=== PATIENT | female | born 1990 | race Caucasian/White ===

== ENCOUNTER 2016-10-27 22:05 | Inpatient (IN) | payer MEDICAID, OTHER ==
[2016-10-28] MEDS ORDERED: SODIUM CHLORIDE 0.9% 1,000 ML ONE (00:10)
[2016-10-28] MEDS ORDERED: ONDANSETRON 4 MG/2ML 2 ML VIAL ONE ×2 (00:10→14:12)
[2016-10-28] MEDS ORDERED: HYDROMORPHONE HCL 0.5 MG/0.5 ML SYRINGE ONE ×2 (00:10→04:35)
[2016-10-28 00:26] LABS: ABSOLUTE NEUTROPHIL COUNT 7.7 K/mm3 (1.8-7.7); BASO # 0.1 K/mm3 (0.0-0.2); BASO % 0.7 % (0.2-1.0); EOS # 0.4 (0.0-0.5); HEMATOCRIT 36.8 % (37.0-47.0); HEMOGLOBIN 12.4 gm/l (12.0-16.0); IMM NEUT # 0.1 K/mm3 (0-0.2); IMM NEUT% 0.4 % (0-1); LYMPH # 2.6 (1.0-4.8); LYMPH % 22.6 % (15-45); MEAN CELL VOLUME 88.7 fl (81.0-99.0); MEAN CORPUSCULAR HEMOGLOBIN 29.9 pg (27.0-31.0); MEAN CORPUSCULAR HGB CONC 33.7 g/dl (33.0-37.0); MEAN PLATELET VOLUME 9.1 fl (7.4-10.4); MONO # 0.9 (0.0-0.8); MONO % 7.4 % (4-12); NEUT % 65.9 % (43-75); PLATELET COUNT 328 K/mm3 (130-400); RED CELL DISTRIBUTION WIDTH 12.7 % (11.5-14.5)
[2016-10-28 00:45] LABS: ALB/GLOB RATIO 1.4 (>1.0); ALBUMIN 3.7 gm/dL (3.5-5.7); CALCIUM 8.9 mg/dL (8.6-10.3)
[2016-10-28 02:08] LABS: PH,URINE 6.5 (5.0-8.0); URINE BILIRUBIN NEGATIVE (NEGATIVE); URINE BLOOD NEGATIVE (NEGATIVE); URINE GLUCOSE (UA) NEGATIVE (NEGATIVE); URINE LEUKOCYTE ESTERASE TRACE (NEGATIVE); URINE NITRITE NEGATIVE (NEGATIVE); URINE PROTEIN NEGATIVE (NEGATIVE); URINE UROBILINOGEN 1 mg/dL (0-1 mg/dl)
[2016-10-28 02:12] LABS: URINE APPEARANCE SL CLOUDY; URINE COLOR YELLOW
[2016-10-28 02:15] LABS: URINE AMORPHOUS SEDIMENT 4+; URINE BACTERIA TRACE; URINE EPITHELIAL CELLS PACKED /hpf
[2016-10-28 05:17] VITALS: BMI 23.5
[2016-10-28] MEDS ORDERED: HYDROMORPHONE HCL 0.5 MG/0.5 ML SYRINGE IV PRN (05:30)
[2016-10-28] MEDS ORDERED: ONDANSETRON 4 MG/2ML 2 ML VIAL IV PRN ×3 (05:33→20:00)
[2016-10-28] MEDS ORDERED: PUMP TUBING ONE (05:36)
[2016-10-28] MEDS: D5 1/2NS with 20 mEq KCL 1,000 ML IV SCH ×3 (05:43→17:44)
--- NOTE | 2016-10-28 09:42 | US ---
ABDOMINAL-LIMITED COMPARISON: None. HISTORY: Right upper quadrant pain. Patient was given pain medication. Last date at 2200 on 10/27/2016 FINDINGS: Gallbladder: Length 7.9 cm, wall thickness 2.7 mm. Echogenic sludge. No stones. Negative Mack sign. Common hepatic duct: 2 mm. Common bile duct: 3 mm IMPRESSION: 1. Gallbladder sludge. No acute cholecystitis. Bile ducts are nondilated. Preliminary report by [facility] radiologist Nick Hernandez M.D. 10/28/2016 at 01:38
[2016-10-28] MEDS ORDERED: WATER IV SCH (10:30)
[2016-10-28] MEDS ORDERED: PIPERACILLIN-TAZO PREMIX BAG 3.375 G in Premix (D5W) 50 ml 1 EACH IV SCH (10:30)
[2016-10-28] MEDS ORDERED: PIPERACILLIN TAZO IV SCH (10:30)
[2016-10-28] MEDS ORDERED: LACTATED RINGERS 1,000 ML ONE (11:07)
[2016-10-28] MEDS ORDERED: LIDOCAINE 1%/EPI 1:100,000 (MULTI DOSE) 30 ML VIAL ONE (11:28)
[2016-10-28] MEDS ORDERED: Heparin Sodium 5000 unit/0.5ml syringe SUB-Q ONE (13:27)
[2016-10-28] MEDS ORDERED: CEFAZOLIN SODIUM 2 GRAM PREMIX 2 G in Premix (D5W) 100 ml 1 EACH IV PRN (13:27)
[2016-10-28] MEDS ORDERED: MIDAZOLAM HCL 1 MG/ML 2ML VIAL ONE (13:33)
[2016-10-28] MEDS ORDERED: FENTANYL 250 MCG/5 ML AMP ONE (13:33)
[2016-10-28] MEDS ORDERED: CEFAZOLIN SODIUM 2 GRAM PREMIX 100 ML IV ONE (13:46)
[2016-10-28] MEDS ORDERED: DEXAMETHASONE SOD PHOS 4 MG/1 ML VIAL ONE (14:12)
[2016-10-28] MEDS ORDERED: DIPHENHYDRAMINE HCL 50 MG/1 ML VIAL ONE (14:12)
[2016-10-28] MEDS ORDERED: PROPOFOL 20 ML IV ONE (14:12)
[2016-10-28] MEDS ORDERED: GLYCOPYRROLATE 0.2 MG/ML 1ML VIAL ONE (14:12)
[2016-10-28] MEDS ORDERED: ROCURONIUM BROMIDE 10 MG/ML DOSE IV ONE (14:12)
[2016-10-28] MEDS ORDERED: NEOSTIGMINE METHYLSULFATE 1 MG/ML DOSE ONE (14:12)
[2016-10-28] MEDS ORDERED: NALOXONE HCL 0.4 MG/ML VIAL IV PRN (14:22)
[2016-10-28] MEDS ORDERED: FENTANYL 100 MCG/2 ML VIAL IV PRN (14:22)
[2016-10-28] MEDS ORDERED: HYDROMORPHONE HCL 1 MG/ML SYRINGE IV PRN (14:22)
[2016-10-28] MEDS ORDERED: ATROPINE SULFATE 0.4 MG/1 ML VIAL IV PRN (14:22)
[2016-10-28] MEDS ORDERED: PROMETHAZINE HCL 25 MG/ML VIAL IM PRN (14:22)
--- NOTE | 2016-10-28 14:23 | HP ---
JAC BUSCH : 1990 DATE: October 28, 2016 HISTORY OF PRESENT ILLNESS: I had the pleasure of seeing Ms. Busch in [facility] today. She is a 26-year-old female with symptoms of acute cholecystitis. She presented with approximately a two-day history of worsening right upper quadrant abdominal pain. Upon admission to the emergency department, she underwent evaluation with ultrasound which suggested layering sludge in the neck of the gallbladder consistent with acute cholecystitis. Ms. Busch is otherwise healthy. She stated no relevant past medical history. She may have a remote history of illicit substance use but states that this is no longer an issue. She has a history of intermittent right upper quadrant abdominal pain happening mostly in the evenings after meals. She is unsure if it is related to what she is eating, but she states that it occurs after eating meals and lasts between one to three hours. This has been going on for many months. She is unable to relate the number of episodes, but she states it happens at least a number of times per month. Over the last two days, she had worsening, right upper quadrant pain with similar pain to her previous attacks but the pain did not michael and continued to increase necessitating her presentation to the emergency department. PHYSICAL EXAM: GENERAL: On physical exam, Ms. Busch appears her stated age. RESPIRATORY: Lungs are clear bilaterally. CARDIOVASCULAR: Her heart sounds are regular with normal heart sounds. ABDOMEN: Her abdomen is soft. She has significant right upper quadrant abdominal tenderness to deep palpation and a positive Mack's on physical exam. She has no additional concerning features. LABORATORIES: Laboratory results reveal normal electrolytes and normal liver function tests. Her total bilirubin is 0.4. Her lipase is 21. CBC reveals a white count of 11.7. DIAGNOSTIC IMAGING: Abdominal ultrasound reveals a gallbladder with echogenic sludge, no discrete stones but layering of sludge in the inferior portion of the gallbladder. Sonographic Mack's was not elicited due to recent narcotics prior to the ultrasound. ASSESSMENT: I had a long discussion today with Ms. Busch. I reviewed the history of her right upper quadrant abdominal pain seems classic for biliary colic becoming acute cholecystitis. Ultrasound demonstrates sludge which is small sand and stones consistent with the cause of biliary colic. She has an elevated white count, and on exam positive Mack's sign and right upper quadrant abdominal tenderness. Based on this, I recommended a laparoscopic possible open cholecystectomy. I reviewed the risks and benefits of surgery which included but were not limited to deep venous thrombosis, myocardial infarction, pulmonary embolism, wound infection, urinary tract infection, kidney failure, respiratory failure, reaction to medication, reaction to anesthetic, or hernia through the incisions afterword. I discussed the specific risks of laparoscopic cholecystectomy which is a 1/200 chance of common bile duct injury. I explained the significance of this injury, and the need for potential conversion to an open procedure at the time of surgery. I quoted her a 5% risk of an open conversion if the anatomy was difficulty or the inflammation to significant to proceed with laparoscopic approach. Ms. Busch understood the risks and benefits of surgery and agreed to proceed with surgery. Informed consent was obtained. PLAN: Plan for a laparoscopic cholecystectomy later today. Started IV antibiotics for control of acute cholecystitis.
[2016-10-28] MEDS ORDERED: LACTATED RINGERS 1,000 ML IV SCH (14:30)
--- NOTE | 2016-10-28 15:20 | PCMON ---
Date of Procedure: 10/28/16 Start Time: 2:30pm PREOPERATIVE DIAGNOSIS Acute Cholecystitis POSTOPERATIVE DIAGNOSIS same PROCEDURE PERFORMED Laparoscopic cholecystectomy. COMPLICATIONS None. OPERATIVE FINDINGS edematous inflamed gallbladder consistent with acute cholecystitis ESTIMATED BLOOD LOSS 30 mL. BRIEF INDICATIONS JAC BUSCH is a 26 year old F patient with symptoms consistent with gallbladder disease and was admitted for consideration of laparoscopic cholecystectomy. The preoperative liver function tests were normal, and RUQ-focused ultrasound demonstrated gallbladder sludge. Risks and benefits of surgery were explained to the patient, including the 1: 200 risk of common bile duct injury and the possible need for conversion to open technique (5%). The patient declined the possible alternatives and agreed to proceed with surgery, providing informed consent. DESCRIPTION OF PROCEDURE The patient was brought to the operating room and placed supine on the operating room table. A surgical briefing was held to verify the correct patient and correct procedure. A general anesthetic was induced uneventfully, followed by the administration of a subcutaneous heparin injection and perioperative antibiotics. Pneumatic compression stockings were placed on the legs and powered on. The abdomen was prepped and draped in a sterile fashion. A 5-mm direct optical view trocar was used to enter the right upper quadrant under direct vision of the abdominal wall layers. Once inside the abdominal cavity, a pneumoperitoneum was created. No injury to underlying structures occurred with placement of this trocar. Once inside the abdominal cavity, an additional 11-mm port was placed in the upper midline just below the xiphisternum. An additional 5-mm port was placed in the supraumbilical position , and a 5-mm port was placed in the right lateral position. All trocars were placed under direct visualization. There was no injury to underlying structures with placement of these trocars. Once inside the abdominal cavity and the pneumoperitoneum was created, the gallbladder was retracted over the liver. We were able to identify inflammation around the gallbladder, and there appeared to be a stone in Kelli pouch. The gallbladder was then grasped by Kelli pouch and retracted up away from the common bile duct. Pre-dissection safety checklist: Fundus of gallbladder retracted to 10 o'clock: yes. Line between Rouviere sulcus and base of segment IV identified: yes. Safe level of dissection identified: yes. Posterior leaf of peritoneum covering hepatobiliary triangle identified: yes. The dissection was initiated with hook electrocautery on the posterior peritoneum covering of the hepatobiliary triangle, followed by the medical border of the gallbladder in the region of Calot triangle. We identified the lymph node of Calot which was not removed during the dissection. We continued our dissection, mobilizing lymph node off the cystic artery. As the triangle was developed, the cystic artery was identified. An intraoperative cholangiogram was not performed. The cystic duct and artery were both identified and exposed. A critical view of safety was obtained by clearing all the tissue between the underside of the infundibulum and the liver so the cystic duct and the artery could be clearly seen going into the gallbladder. The triangle of Calot had no aberrant structures or additional anatomy present within the triangle between the liver bed, the cystic duct and the region of the gallbladder. Once the critical view was demonstrated and there was no evidence of additional structures, we turned our attention to clipping the cystic artery and duct. Pre-clipping of cystic duct safety checklist: Critical view confirmed: yes. The cystic artery was clipped twice proximally, once distally and transected. This was confirmed as the artery with pulsatile beating in the region of the clips once transected. Once the artery was taken, we turned our attention to clipping the cystic duct. The cystic duct was clipped with 2 to 3 clips proximally and once distally. This was then transected, and we then removed the gallbladder from the gallbladder bed. No injury to the underlying liver occurred with removal of the gallbladder, there was no evidence of bile leak or bile duct injury, and the gallbladder was not perforated with no spillage of stones prior to removal. The gallbladder was then placed in an Endocatch bag and removed through the 11-mm trocar. Once the trocar was removed, we then irrigated the right upper quadrant. The pneumoperitoneum was released, and the trocars were removed under direct visualization.
[2016-10-28] MEDS: METRONIDAZOLE 500 MG/NS 100 ML 500 MG in Premix (NS) 100 ml 1 EACH IV SCH (16:07)
[2016-10-28] MEDS ORDERED: SODIUM CHLORIDE 0.9% FLUSH 10 ML ONE (16:48)
[2016-10-28] MEDS ORDERED: ACETAMINOPHEN 325 MG TABLET PO PRN (17:19)
[2016-10-28] MEDS: HYDROMORPHONE HCL 0.5 MG/0.5 ML SYRINGE IV PRN ×2 (17:45→21:28)
[2016-10-28] MEDS: TRAMADOL HCL 50 MG TABLET PO PRN (20:19)
[2016-10-28] MEDS: KETOROLAC TROMETHAMINE 15 MG/ML VIAL IV PRN (20:19)
[2016-10-28] MEDS: CEFAZOLIN SODIUM 2 GRAM DUPLEX 50 ML IV SCH (21:29)
[2016-10-28] MEDS ORDERED: CEFAZOLIN SODIUM 2 GRAM PREMIX 2 G in Premix (D5W) 100 ml 1 EACH IV SCH (22:00)
[2016-10-29] MEDS: D5 1/2NS with 20 mEq KCL 1,000 ML IV SCH (02:40)
[2016-10-29] MEDS: METRONIDAZOLE 500 MG/NS 100 ML 500 MG in Premix (NS) 100 ml 1 EACH IV SCH (04:30)
[2016-10-29] MEDS: CEFAZOLIN SODIUM 2 GRAM DUPLEX 50 ML IV SCH (06:24)
[2016-10-29] MEDS: KETOROLAC TROMETHAMINE 15 MG/ML VIAL IV PRN (09:11)
[2016-10-29] MEDS ORDERED: HYDROMORPHONE HCL 0.5 MG/0.5 ML SYRINGE IV ONE (09:18)
[2016-10-29 10:18] LABS: BASO % 0.3 % (0.2-1.0); EOS # 0.1 (0.0-0.5); EOS % 0.7 % (0.9-2.9); HEMATOCRIT 34.5 % (37.0-47.0); HEMOGLOBIN 11.4 gm/l (12.0-16.0); IMM NEUT # 0.1 K/mm3 (0-0.2); IMM NEUT% 0.4 % (0-1); LYMPH # 1.9 (1.0-4.8); LYMPH % 15.7 % (15-45); MEAN CELL VOLUME 88.5 fl (81.0-99.0); MEAN CORPUSCULAR HEMOGLOBIN 29.2 pg (27.0-31.0); MEAN PLATELET VOLUME 9.6 fl (7.4-10.4); MONO # 0.9 (0.0-0.8); MONO % 7.9 % (4-12); PLATELET COUNT 298 K/mm3 (130-400); RED CELL DISTRIBUTION WIDTH 12.5 % (11.5-14.5)
[2016-10-29 10:36] LABS: ALB/GLOB RATIO 1.3 (>1.0); ALBUMIN 3.1 gm/dL (3.5-5.7); ALT/SGPT 23 U/L (7-52); BILIRUBIN,DIRECT < 0.1 mg/dL (0.0-0.2); BILIRUBIN,INDIRECT 0.2 mg/dL (0.2-1.0)
[2016-10-29 11:36] VITALS: BP 115/69
[2016-10-29] MEDS: TRAMADOL HCL 50 MG TABLET PO PRN (12:51)
--- NOTE | 2016-11-01 13:25 | DS ---
Crystal Wilcox [id number] DATE OF ADMISSION: 10/28/2016 DATE OF DISCHARGE: 10/29/2016 INITIAL DIAGNOSIS: Acute cholecystitis. DISCHARGE SUMMARY: Mrs. Wilcox is a 26-year-old female who was admitted with symptoms consistent with gallbladder disease and acute cholecystitis. The risks and benefits of surgery were explained to Mrs. Wilcox. She agreed to proceed with surgery and informed consent was obtained for surgery. She underwent a laparoscopic cholecystectomy without incident. She had complete resolution of her abdominal pain that was present before the surgery. After the surgery she did well. In the postoperative period she improved by mouth intake and started passing flatus. She had minimal pain issues with oral pain medications for pain control. At that point, she was discharged on 10/29/2016 with a uneventful postoperative hospital course for a laparoscopic cholecystectomy. JOB: [id number]
--- NOTE | 2016-11-01 13:54 | SURGPATH ---
[facility] [address] [place] [id number] Patient Name: JAC BUSCH MR#: [id number] : 1990 Gender: F Specimen #: [id number] Collected: 10/28/2016 Received: 10/31/2016 Reported: 11/01/2016 Submitting Phys: MARIE KC Copy To Phys: [facility] Clinical History / Pre-Operative Diagnosis: Acute cholecystitis Specimen Source / Surgical Procedure Performed: Gallbladder Interpretation: GALLBLADDER, CHOLECYSTECTOMY: - MILD ACUTE AND CHRONIC CHOLECYSTITIS. - CHOLELITHIASIS. - NO EVIDENCE OF MALIGNANCY. Electronically Signed Out Lokesh Lam M.D., Ph.D. Gross Description: The specimen is received in formalin labeled with the patient's name and "gallbladder". The segment consists of an intact 5.5 x 3.0 x 3.0 cm gallbladder. The mucosa is green and velvety. There is a 1.2 cm nodule in the gallbladder fundic wall. No stones are present. A. patient intake representative including cystic duct DEANNA Constantino Microscopic Description: Examination of multiple sections from the gallbladder shows gallbladder wall with a mild acute and chronic inflammatory cell infiltrates associated with scattered Rokitansky-Aschoff sinuses. There is no evidence of malignancy. 1: [id number] K80.12
== END 2016-10-29 13:00 | disposition home or self-care (01) | DRG 419 ==
LOC: ED 22:05 → SDC 10-28 04:07 → MS 10-28 04:07 → UNDOADMOB 10-28 04:07 → MS 10-28 04:07 → SDC 10-28 15:07 → MS 10-28 15:09
PROVIDERS: ADMIT Surgery; ATTEND Surgery
PROC: 0FT44ZZ Resection of Gallbladder, Percutaneous Endoscopic Approach (ICD-10-PCS; principal; 2016-10-28)
DX: K80.42 Calculus of bile duct with acute cholecystitis without obstruction (principal)